=== PATIENT | male | born 1965 | race Caucasian/White ===

== ENCOUNTER 2016-12-08 21:43 | Inpatient (IN) | payer OTHER ==
[2016-12-08] MEDS ORDERED: ONDANSETRON 4 MG/2 ML VIAL IVPUSH ONE (22:03)
[2016-12-08] MEDS ORDERED: morphine CARPU-JECT 4 MG/1 ML DISP.SYRIN IVPUSH ONE (22:03)
[2016-12-08] MEDS ORDERED: SODIUM CHLORIDE 1,000 ML IV STA (22:03)
--- NOTE | 2016-12-08 22:03 | PDOC ---
History of Present Illness - History of Present Illness Initial Comments: 12/08/16 22:36 The patient is a 51 year old male with a history of kidney stones who presents for evaluation of right sided flank and abdominal pain. The patient reports acute onset of severe sharp right sided flank pain with radiation into his right sided abdomen and right groin. The patient reports that his pain feels similar to a kidney stone he had several years ago for which he was treated on an outpatient basis. He endorses some nausea and multiple episodes of non- bilious, non-bloody vomiting associated with the pain. He denies fevers, chills , SOB, chest pain, or changes with bowel movements. He states that he has not urinated since the onset of the pain. <Thomas Coats - Last Filed: 12/09/16 04:16> <Virginia Llamas - Last Filed: 12/09/16 04:57> - General Chief Complaint: Pain, Acute Stated Complaint: KIDNEY STONE Time Seen by Provider: 12/08/16 21:58 Past History - Suicide/Smoking/Psychosocial Hx Smoking History: Never smoked Have you smoked in the past 12 months: No Information on smoking cessation initiated: No Hx Alcohol Use: No Drug/Substance Use Hx: No <Thomas Coats - Last Filed: 12/09/16 04:16> <Virginia Llamas - Last Filed: 12/09/16 04:57> - Past Medical History Allergies/Adverse Reactions: Allergies Allergy/AdvReac Type Severity Reaction Status Date / Time No Known Allergies Allergy Verified 12/08/16 21:57 Home Medications: Ambulatory Orders Unobtainable [Unobtainable] 12/09/16 Review of Systems - Review of Systems Comments:: 12/08/16 22:41 Constitutional: No fevers, chills, fatigue, malaise HEENT: No Rhinorrhea, nasal congestion, visual changes Cardiovascular: No chest pain, syncope, palpitations, lightheadedness Respiratory: No Cough, SOB, Hemoptysis, Gastrointestinal: Nausea and vomiting. Abdominal pain. No Constipation, Diarrhea, Melena Genitourinary: Right flank pain. Decreased frequency. No Dysuria, Urgency, Hesitancy, Hematuria, Musculoskeletal: No Myalgia, arthralgia Skin: No rashes, itching, bruising, pallor Neurologic: No Headache, Dizziness, Numbness, Weakness, or Tingling <Thomas Coats - Last Filed: 12/09/16 04:16> *Physical Exam - Vital Signs Last Vital Signs Temp Pulse Resp BP Pulse Ox 97.3 F L 81 16 159/121 100 12/08/16 21:57 12/08/16 21:57 12/08/16 21:57 12/08/16 21:57 12/08/16 21:57 - Physical Exam Comments: 12/08/16 22:42 General Appearance: Nourished. In Moderate Distress HEENT: EOMI, JUDITH. No Pharyngeal Erythema, Tonsillar Exudate, Tonsillar Erythema Neck: No Cervical Lymphadenopathy Respiratory/Chest: Lungs Clear, Normal Breath Sounds. No Crackles, Rales, Rhonchi, Wheezing Cardiovascular: Regular Rhythm, Regular Rate. No Murmur, Gallops, Rubs Gastrointestinal/Abdominal: Normal Bowel Sounds, Soft. Right sided tenderness to palpation. No Guarding, Rebound, Musculoskeletal: Right sided CVA tenderness. No Left CVA Tenderness Extremity: Normal Capillary Refill Integumentary: Normal Color, Dry, Warm Neurologic: Fully Oriented, Alert, Normal Mood/Affect, Normal Response, <Thomas Coats - Last Filed: 12/09/16 04:16> - Vital Signs Last Vital Signs Temp Pulse Resp BP Pulse Ox 97.5 F L 68 18 132/64 98 12/09/16 04:11 12/09/16 04:11 12/09/16 04:26 12/09/16 04:11 12/09/16 04:26 <Virginia Llamas - Last Filed: 12/09/16 04:57> ED Treatment Course - LABORATORY CBC & Chemistry Diagram: 12/08/16 22:10 12/08/16 22:10 <Thomas Coats - Last Filed: 12/09/16 04:16> - LABORATORY CBC & Chemistry Diagram: 12/08/16 22:10 12/08/16 22:10 - ADDITIONAL ORDERS Additional order review: Laboratory Results 12/08/16 22:10 Sodium 140 Potassium 3.4 L Chloride 107 Carbon Dioxide 24 Anion Gap 9 BUN 20 H Creatinine 1.3 Creat Clearance w eGFR 57.75 Random Glucose 109 H Calcium 9.5 Total Bilirubin 0.5 AST 20 ALT 37 Alkaline Phosphatase 72 Total Protein 7.2 Albumin 3.8 Lipase 188 12/08/16 22:10 RBC 5.21 MCV 81.4 MCHC 32.8 RDW 14.5 MPV 8.6 Neutrophils % 64.9 Lymphocytes % 23.7 Monocytes % 6.1 Eosinophils % 4.6 H Basophils % 0.7 - Medications Given in the ED: ED Medications Discontinued Medications Generic Name Dose Route Start Last Admin Trade Name Shanon PRN Reason Stop Dose Admin Sodium Chloride 1,000 mls @ 1,000 mls/hr 12/08/16 22:03 12/08/16 22:27 Normal Saline - IV 12/08/16 23:02 1,000 mls/hr ASDIR STA Administration Ketorolac Tromethamine 30 mg 12/09/16 00:32 12/09/16 01:22 Toradol Injection - IVPUSH 12/09/16 00:33 30 mg ONCE ONE Administration Morphine Sulfate 4 mg 12/08/16 22:03 12/08/16 22:28 Morphine Injection - IVPUSH 12/08/16 22:04 Not Given ONCE ONE Morphine Sulfate 2 mg 12/08/16 22:15 12/08/16 22:26 Morphine Injection - IVPUSH 12/08/16 22:16 2 mg ONCE ONE Administration Morphine Sulfate 2 mg 12/08/16 22:51 12/08/16 23:01 Morphine Injection - IVPUSH 12/08/16 22:52 2 mg ONCE ONE Administration Ondansetron HCl 4 mg 12/08/16 22:03 12/08/16 22:26 Zofran Injection IVPUSH 12/08/16 22:04 4 mg ONCE ONE Administration Tamsulosin HCl 0.4 mg 12/09/16 00:30 12/09/16 01:22 Flomax - PO 12/09/16 00:31 0.4 mg ONCE ONE Administration <Virginia Llamas - Last Filed: 12/09/16 04:57> Medical Decision Making - Medical Decision Making 12/08/16 22:52 The patient is a 51 year old male with a history of kidney stones who presents for evaluation of right sided flank and abdominal pain. Differential includes but is not limited to: Appendicitis, nephrolethiasis, pyelonephritis, pancreatitis, infectious, metabolic derangement. The patient is in moderate distress on exam with an acutely tender abdomen and right flank. Given his symptoms we are concerned for a kidney stone especially given the acuity of his symptoms. The patient is post appendectomy. We will send a cbc, cmp, lipase, and UA to evaluate his symptoms further for pancreatitis or infectious etiologies. We will continue to monitor and reassess. 12/09/16 02:29 Cbc demonstrates an elevated wbc to 12.5. cmp demonstrates a bun of 20 and creatinine of 1.3. The patient has continued to not be able to urinate. CT demonstrates a 6mm stone at the u/v junction with hydroureter and multiple non- obstructing stones as read by the configuration developer radiologist pending official radiology read in the morning. We believe that the patient requires admission for further management of his symptoms. We discussed the results and the plan with the patient who voiced understanding and is agreeable with the plan. 12/09/16 02:31 We discussed the case with the hospitalist team who accepted the patient for admission. <Thomas Coats - Last Filed: 12/09/16 04:16> - Medical Decision Making 12/09/16 04:55 Pt was seen by myself and the resident. Pt comes with severe right sided and right flank tenderness; Pt has 6mm stone at the UPJ; it is obstructing and causing hydroureter. Pt was admitted to Dr. Mcbride's service. We treated with saline; analgesia and with flomax. No abx given. Pt requires UA and u culture first. <Virginia Llamas - Last Filed: 12/09/16 04:57> *DC/Admit/Observation/Transfer - Discharge Dispostion Admit: Yes <Thomas Coats - Last Filed: 12/09/16 04:16> <Virginia Llamas - Last Filed: 12/09/16 04:57> Diagnosis at time of Disposition: Kidney stone on right side - Discharge Dispostion Condition at time of disposition: Guarded - Referrals Addendum entered and electronically signed by Thomas Coats RES 12/09/16 04: 19: Progress Note - Progress Note Progress Note: Discussed the case with the hospitalist team. The patient is a patient of Dr. Mcbride's group. We discussed the patient with Dr. Mcbride's YEAST FERMENTATION ATTENDANT who agreed to accept the patient for admission.
[2016-12-08] MEDS ORDERED: morphine CARPU-JECT 2 MG/1 ML DISP.SYRIN ONE (22:14)
[2016-12-08] MEDS ORDERED: morphine CARPU-JECT 2 MG/1 ML DISP.SYRIN IVPUSH ONE ×2 (22:15→22:51)
[2016-12-08] MEDS ORDERED: ONDANSETRON 4 MG/2 ML VIAL ONE (22:15)
[2016-12-08 22:17] LABS: BASOPHIL 0.7 % (0-2.0); EOSINOPHIL 4.6 % (0-4.5); MCH 26.7 pg (25.7-33.7); MCHC 32.8 g/dl (32.0-35.9); MEAN CELL VOLUME 81.4 fl (80-96); MEAN PLT VOLUME 8.6 fl (7.5-11.1); NEUTROPHILS 64.9 % (42.8-82.8); PLATELET COUNT 201 K/MM3 (134-434); RDW 14.5 % (11.9-15.9); WHITE BLOOD COUNT 12.5 K/mm3 (4.0-10.0)
[2016-12-08 22:46] LABS: ALBUMIN 3.8 g/dl (3.4-5.0); ALK PHOS 72 U/L (45-117); ANION GAP 9 (8-16); BILIRUBIN,TOTAL 0.5 mg/dL (0.2-1.0); CALCIUM 9.5 mg/dL (8.5-10.1); CO2 24 mmol/L (21-32); CREATININE 1.3 mg/dL (0.7-1.3); GLUCOSE,RANDOM 109 mg/dL (74-106); SGOT/AST 20 U/L (15-37); SGPT/ALT 37 U/L (12-78); TOT PROT 7.2 g/dl (6.4-8.2)
[2016-12-08] MEDS ORDERED: morphine CARPU-JECT 10 MG/1 ML DISP.SYRIN ONE (22:56)
--- NOTE | 2016-12-08 23:10 | PDOC ---
Attending Attestation - Resident Resident Name: Thomas Coats - HPI HPI: 12/08/16 23:06 Pt comes with right flank pain and right sided abd pain. He has a hx of kidney stones; last was several years ago. Pt has HTN and asthma but no other medical probs. He has a desk job and doesn't strain. His appendix waws removed years ago. He has no fever and reports no dysuria, and states that he has been unable to pee; has not appreciated any hematuria. - Physicial Exam PE: 12/08/16 23:08 Agree with resident exam. Flank pain with palpation and with percussion; Pt has RLQ pain. Pt has LUQ pain and central abd tenderness. Pt is diffusely tender. Pt vomited 1X in the ER but that was after we tried oral hydration. Pt had received 2mg morphine. He was given another 2mg morphine for pain. - Medical Decision Making 12/08/16 23:[address] abd pelvis; he cannot tolerate oral contrast. We will not give IV contrast as we dont want to interfere with visualization of potential kidney stones. 12/09/16 04:05 Patient Name: ANTHONY WADSWORTH THIS IS A PRELIMINARY REPORT FROM [facility] [employer] TECHNIC[facility] DATE OF SERVICE: 2016-12-08 23:52:28 IMAGES: [id number] EXAM: CT ABDOMEN AND PELVIS WITHOUT CONTRAST 6 mm stone at right UVJ. Small nonobstructing stones bilateral kidneys. Small left renal cyst. No bowel obstruction, colitis, free fluid or free air. Appendix not seen. Unremarkable pancreas and gallbladder. THIS DOCUMENT HAS BEEN ELECTRONICALLY SIGNED Pt will be admitted for hydroureter and obstructing ston 6mm. Given flomax and pain meds. Pt will require renal consult in the AM.
[2016-12-09] MEDS ORDERED: TAMSULOSIN HCL 0.4 MG CAP.ER.24H (FP) PO ONE (00:30)
[2016-12-09] MEDS ORDERED: KETOROLAC TROMETHAMINE 30 MG/1 ML VIAL IVPUSH ONE (00:32)
[2016-12-09] MEDS ORDERED: TAMSULOSIN HCL 0.4 MG CAP.ER.24H (FP) ONE (01:17)
[2016-12-09] MEDS ORDERED: KETOROLAC TROMETHAMINE 30 MG/1 ML VIAL ONE (01:17)
[2016-12-09 04:11] VITALS: BMI 22.5
[2016-12-09 04:19] LABS: INR 1.12 (0.82-1.09); PROTHROMBIN TIME (PATIENT) 12.7 SEC (9.98-11.88)
[2016-12-09] MEDS ORDERED: morphine CARPU-JECT 2 MG/1 ML DISP.SYRIN IVPUSH PRN ×2 (07:46→07:54)
[2016-12-09] MEDS ORDERED: KETOROLAC TROMETHAMINE 30 MG/1 ML VIAL IVPUSH PRN (07:53)
[2016-12-09] MEDS: DEXTROSE 5%-WATER - 1,000 ML IV SCH (08:50)
--- NOTE | 2016-12-09 11:08 | CON.GU ---
Consult Consult Specialty:: Urology Referred by:: Reed Reason for Consultation:: Right flank pain - History of Present Illness Chief Complaint: Right flank pain History of Present Illness: 51 yo male w long hx renal calculi w right flank pain nausea now more comfortable Pt found to have right hydro from 6 mm right distal uretral stone . Voiding well - Alcohol/Substance Use Hx Alcohol Use: No (social) - Smoking History Smoking history: Never smoked Have you smoked in the past 12 months: No Home Medications - Allergies Allergies/Adverse Reactions: Allergies Allergy/AdvReac Type Severity Reaction Status Date / Time No Known Allergies Allergy Verified 12/08/16 21:57 - Home Medications Home Medications: Ambulatory Orders Unobtainable [Unobtainable] 12/09/16 Physical Exam- Vital Signs: Vital Signs Temperature 97.5 F L 12/09/16 04:11 Pulse Rate 68 12/09/16 04:11 Respiratory Rate 18 12/09/16 04:26 Blood Pressure 132/64 12/09/16 04:11 O2 Sat by Pulse Oximetry (%) 98 12/09/16 04:26 Imaging - Results Cat Scan: Image Reviewed Assessment/Plan Right renal colic from 6 mm obstructing distal ureteral stone Pt now comfortable Abx for elevated wbc VSS afebrile no evidence of SIRS if stone does not pass will likely require ureteroscopy
[2016-12-09] MEDS ORDERED: PATIENT'S OWN MEDICATION (NON-FORMULARY) (Albuterol Sulfate [Proair Respiclick] 90 MCG) IH PRN (17:53)
[2016-12-09] MEDS ORDERED: ALBUTEROL SO4 18 GM HFA INHALER IH PRN (18:03)
--- NOTE | 2016-12-09 18:04 | PN ---
Progress Note, Physician Chief Complaint: nephrolithiasis History of Present Illness: 51 yo male w long hx renal calculi came in to [facility] ER with right flank pain and nausea. He is comfortable now Patient was found to have right hydronephrosis with 6 mm right distal obstructing uretral stone . Voiding well now, pain well controlled on morphine given in ER has not used any pain medication since - Current Medication List Current Medications: Active Medications Ezetimibe (Zetia -) 10 mg PO DAILY [facility] Dextrose (D5w -) 1,000 mls @ 75 mls/hr IV ASDIR ALYSSA Last Admin: 12/09/16 08:50 Dose: 75 mls/hr Levofloxacin (Levaquin 500 Mg Premixed Ivpb -) 100 mls @ 100 mls/hr IVPB DAILY [facility] Ketorolac Tromethamine (Toradol Injection -) 30 mg IVPUSH Q6H PRN PRN Reason: PAIN Stop: 12/14/16 07:52 Losartan Potassium (Cozaar -) 50 mg PO DAILY [facility] Morphine Sulfate (Morphine Injection -) 4 mg IVPUSH Q6H PRN PRN Reason: PAIN Non-Formulary Medication (Albuterol Sulfate [Proair Respiclick]) 90 mcg IH QID PRN PRN Reason: ASTHMA Non-Formulary Medication (Anoro Ellipta 62.5-25 Mcg Inh) 1 puff PO DAILY [facility] Non-Formulary Medication (Atorvastatin Calcium) 80 mg PO DAILY [facility] Non-Formulary Medication (Azelastine/Fluticasone [Dymista Nasal [place]]) 23 gm NS BID [facility] Non-Formulary Medication (Metoprolol Tartrate) 25 mg PO DAILY [facility] Tamsulosin HCl (Flomax -) 0.4 mg PO DAILY@0830 [facility] - Objective Vital Signs: Vital Signs Temperature 98.0 F 12/09/16 14:00 Pulse Rate 66 12/09/16 14:00 Respiratory Rate 18 12/09/16 14:00 Blood Pressure 99/54 12/09/16 14:00 O2 Sat by Pulse Oximetry (%) 98 12/09/16 09:00 Constitutional: Yes: Well Nourished, No Distress, Calm Cardiovascular: Yes: Regular Rate and Rhythm Respiratory: Yes: Regular Musculoskeletal: Yes: WNL Extremities: Yes: WNL Edema: No Peripheral Pulses WNL: Yes Neurological: Yes: Alert, Oriented Psychiatric: Yes: Alert, Oriented Labs: INR, PTT INR 1.12 (0.82-1.09) 12/09/16 03:49 Problem List - Problems (1) Nephrolithiasis Assessment/Plan: -6 mm right distal obstructing uretral stone -seen by urology -trial of patient passing the stone Code(s): N20.0 - CALCULUS OF KIDNEY (2) Hydronephrosis due to obstruction of ureter Assessment/Plan: -no urinary retention in the bladder -voiding well -6 mm right distal obstructing uretral stone Code(s): N13.2 - HYDRONEPHROSIS WITH RENAL AND URETERAL CALCULOUS OBSTRUCTION Assessment/Plan see problem list
[2016-12-09] MEDS: HEPARIN NA (PORCINE) 5,000 UNITS/ML 1ML VIAL SQ SCH (21:14)
[2016-12-09] MEDS: ATORVASTATIN CA 80 MG TABLET (FP) PO SCH (21:14)
--- NOTE | 2016-12-09 21:22 | HP ---
Admitting History and Physical - Primary Care Physician PCP: James Avila - Admission Chief Complaint: nephrolithiasis History of Present Illness: 51 yo male w long hx renal calculi came in to [facility] ER with right flank pain and nausea. He is comfortable now Patient was found to have right hydronephrosis with 6 mm right distal obstructing uretral stone . Voiding well now, pain well controlled on morphine given in ER has not used any pain medication since. seen by urology, on IVF, may pass the stone spontaneously, if not would need lithotripsy History Source: Patient Limitations to Obtaining History: No Limitations - Advance Directives Advance Directives: Yes: Living Will, Health Care Proxy - Smoking History Smoking history: Never smoked Have you smoked in the past 12 months: No - Alcohol/Substance Use Hx Alcohol Use: No (social) Home Medications - Allergies Allergies/Adverse Reactions: Allergies Allergy/AdvReac Type Severity Reaction Status Date / Time No Known Allergies Allergy Verified 12/08/16 21:57 - Home Medications Home Medications: Ambulatory Orders Albuterol Sulfate [Proair Respiclick] 90 mcg IH QID PRN 12/09/16 Anoro Ellipta 62.5-25 Mcg INH 1 puff PO DAILY 12/09/16 Aspirin [ASA -] 81 mg PO DAILY 12/09/16 Atorvastatin Calcium 80 mg PO DAILY 12/09/16 Azelastine/Fluticasone [Dymista Nasal [place]] 23 gm NS BID 12/09/16 Ezetimibe [Zetia] 10 mg PO DAILY 12/09/16 Losartan Potassium 50 mg PO DAILY 12/09/16 Losartan Potassium 100 mg PO DAILY 12/09/16 Metoprolol Tartrate 25 mg PO DAILY 12/09/16 Review of Systems Findings/Remarks: NAD, sitting in chair, family at bedside - Review of Systems Constitutional: reports: No Symptoms Eyes: reports: No Symptoms HENT: reports: No Symptoms Neck: reports: No Symptoms Cardiovascular: reports: No Symptoms Respiratory: reports: No Symptoms Gastrointestinal: reports: No Symptoms Genitourinary: reports: Flank Pain (right) Breasts: reports: No Symptoms Reported Musculoskeletal: reports: No Symptoms Integumentary: reports: No Symptoms Neurological: reports: No Symptoms Endocrine: reports: No Symptoms Hematology/Lymphatic: reports: No Symptoms Psychiatric: reports: No Symptoms Pain Intensity: 8 (no pain at this time) Physical Examination Vital Signs: Vital Signs Temperature 98 F 12/09/16 18:17 Pulse Rate 78 12/09/16 18:17 Respiratory Rate 18 12/09/16 18:17 Blood Pressure 105/60 12/09/16 18:17 O2 Sat by Pulse Oximetry (%) 98 12/09/16 09:00 Constitutional: Yes: Well Nourished, No Distress, Calm Cardiovascular: Yes: Regular Rate and Rhythm Respiratory: Yes: Regular Gastrointestinal: Yes: Normal Bowel Sounds Renal/: Yes: CVA Tenderness - Right Musculoskeletal: Yes: WNL Extremities: Yes: WNL Edema: No Peripheral Pulses WNL: Yes Neurological: Yes: Alert, Oriented Psychiatric: Yes: Alert, Oriented Imaging - Results Cat Scan: Report Reviewed Problem List - Problems (1) Nephrolithiasis Assessment/Plan: -6 mm right distal obstructing uretral stone -seen by urology -trial of patient passing the stone Code(s): N20.0 - CALCULUS OF KIDNEY (2) Hydronephrosis due to obstruction of ureter Assessment/Plan: -no urinary retention in the bladder -voiding well -6 mm right distal obstructing uretral stone Code(s): N13.2 - HYDRONEPHROSIS WITH RENAL AND URETERAL CALCULOUS OBSTRUCTION Assessment/Plan see problem list
[2016-12-10 07:33] LABS: BASOPHIL 0.5 % (0-2.0); EOSINOPHIL 7.5 % (0-4.5); MCH 26.8 pg (25.7-33.7); MCHC 32.9 g/dl (32.0-35.9); MEAN CELL VOLUME 81.3 fl (80-96); MEAN PLT VOLUME 8.5 fl (7.5-11.1); NEUTROPHILS 50.4 % (42.8-82.8); PLATELET COUNT 160 K/MM3 (134-434); RDW 14.4 % (11.9-15.9); WHITE BLOOD COUNT 7.4 K/mm3 (4.0-10.0)
[2016-12-10 07:52] LABS: ANION GAP 9 (8-16); CALCIUM 8.2 mg/dL (8.5-10.1); CO2 25 mmol/L (21-32); GLUCOSE,RANDOM 97 mg/dL (74-106)
[2016-12-10 07:56] LABS: ALK PHOS 64 U/L (45-117); BILIRUBIN,TOTAL 0.7 mg/dL (0.2-1.0); SGOT/AST 14 U/L (15-37); SGPT/ALT 28 U/L (12-78); TOT PROT 5.9 g/dl (6.4-8.2)
[2016-12-10] MEDS: DEXTROSE 5%-WATER - 1,000 ML IV SCH (08:08)
[2016-12-10] MEDS ORDERED: ANORO ELLIPTA PO SCH (10:00)
[2016-12-10] MEDS ORDERED: ATORVASTATIN CALCIUM 80 MG PO SCH (10:00)
[2016-12-10] MEDS ORDERED: METOPROLOL TARTRATE 25 MG PO SCH (10:00)
[2016-12-10] MEDS: HEPARIN NA (PORCINE) 5,000 UNITS/ML 1ML VIAL SQ SCH ×2 (10:06→21:32)
[2016-12-10] MEDS: LEVOFLOXACIN 500 MG IVPB 100 ML IVPB SCH (10:06)
[2016-12-10] MEDS: METOPROLOL TARTRATE 25 MG TABLET (FP) PO SCH (10:07)
[2016-12-10] MEDS: LOSARTAN POTASSIUM 50 MG TABLET (FP) PO SCH (10:07)
[2016-12-10] MEDS: TAMSULOSIN HCL 0.4 MG CAP.ER.24H (FP) PO SCH (10:07)
[2016-12-10] MEDS: EZETIMIBE 10 MG TABLET (FP) PO SCH (10:10)
--- NOTE | 2016-12-10 14:52 | EKG ---
Test Reason : Blood Pressure : / mmHG Vent. Rate : 061 BPM Atrial Rate : 061 BPM P-R Int : 178 ms QRS Dur : 088 ms QT Int : 420 ms P-R-T Axes : 039 022 051 degrees QTc Int : 422 ms NORMAL SINUS RHYTHM NORMAL ECG NO PREVIOUS ECGS AVAILABLE Confirmed by VALENCIA MORTON MD ([id number]) on 12/10/2016 2:52:22 PM Referred By: AMY JIM DR Confirmed By:VALENCIA MORTON MD
--- NOTE | 2016-12-10 16:35 | PN ---
Progress Note, Physician Chief Complaint: notes and chart reviewed 7mm right uvj stone obstruction no fevers - Current Medication List Current Medications: Active Medications Albuterol Sulfate (Ventolin Hfa Inhaler -) 2 puff IH Q6H PRN PRN Reason: ASTHMA Atorvastatin Calcium (Lipitor -) 80 mg PO HS [facility] Last Admin: 12/09/16 21:14 Dose: 80 mg Ezetimibe (Zetia -) 10 mg PO DAILY [facility] Last Admin: 12/10/16 10:10 Dose: 10 mg Heparin Sodium (Porcine) (Heparin -) 5,000 unit SQ BID [facility] Last Admin: 12/10/16 10:06 Dose: 5,000 unit Dextrose (D5w -) 1,000 mls @ 75 mls/hr IV ASDIR [facility] Last Admin: 12/10/16 08:08 Dose: 75 mls/hr Levofloxacin (Levaquin 500 Mg Premixed Ivpb -) 100 mls @ 100 mls/hr IVPB DAILY [facility] Last Admin: 12/10/16 10:06 Dose: 100 mls/hr Ketorolac Tromethamine (Toradol Injection -) 30 mg IVPUSH Q6H PRN PRN Reason: PAIN Stop: 12/14/16 07:52 Lactobacillus Acidophilus (Bacid -) 1 tab PO DAILY [facility] Losartan Potassium (Cozaar -) 50 mg PO DAILY [facility] Last Admin: 12/10/16 10:07 Dose: 50 mg Metoprolol Tartrate (Lopressor -) 25 mg PO DAILY [facility] Last Admin: 12/10/16 10:07 Dose: 25 mg Morphine Sulfate (Morphine Injection -) 4 mg IVPUSH Q6H PRN PRN Reason: PAIN Non-Formulary Medication (Anoro Ellipta 62.5-25 Mcg Inh) 1 puff PO DAILY [facility] Non-Formulary Medication (Azelastine/Fluticasone [Dymista Nasal [place]]) 23 gm NS BID [facility] Tamsulosin HCl (Flomax -) 0.4 mg PO DAILY@0830 [facility] Last Admin: 12/10/16 10:07 Dose: 0.4 mg - Objective Vital Signs: Vital Signs Temperature 98.7 F 12/10/16 15:30 Pulse Rate 68 12/10/16 15:30 Respiratory Rate 18 12/10/16 15:30 Blood Pressure 115/74 12/10/16 15:30 O2 Sat by Pulse Oximetry (%) 98 12/10/16 09:00 Constitutional: Yes: Mild Distress Eyes: Yes: WNL HENT: Yes: WNL, Tonsillar Exudate Cardiovascular: Yes: WNL Respiratory: Yes: WNL Gastrointestinal: Yes: Tenderness Genitourinary: Yes: CVA Tenderness - Right Musculoskeletal: Yes: Back Pain Extremities: Yes: WNL Edema: No Peripheral Pulses WNL: Yes Integumentary: Yes: WNL Wound/Incision: Yes: Clean/Dry Neurological: Yes: WNL ...Motor Strength: WNL Psychiatric: Yes: WNL Labs: CBC, BMP 12/10/16 06:45 12/10/16 06:45 INR, PTT INR 1.12 (0.82-1.09) 12/09/16 03:49 Problem List - Problems (1) Hydronephrosis due to obstruction of ureter Code(s): N13.2 - HYDRONEPHROSIS WITH RENAL AND URETERAL CALCULOUS OBSTRUCTION (2) Kidney stone on right side Code(s): N20.0 - CALCULUS OF KIDNEY (3) Nephrolithiasis Code(s): N20.0 - CALCULUS OF KIDNEY Assessment/Plan CONSULT APPRECIATED MEDICALLY CLEARED FOR URETROSCOPE IV ABX BACID IVF PAIN CONTROL
--- NOTE | 2016-12-10 16:58 | PN ---
Progress Note (short form) - Note Progress Note: afebrile pain mild has yet to pass stone will plan for ESWL in am
[2016-12-10] MEDS: LACTOBACILLUS ACIDOPHILUS 1 EACH TAB (FP) PO SCH (18:20)
[2016-12-10] MEDS: ATORVASTATIN CA 80 MG TABLET (FP) PO SCH (21:32)
[2016-12-11] MEDS: METOPROLOL TARTRATE 25 MG TABLET (FP) PO SCH (09:10)
[2016-12-11] MEDS: LEVOFLOXACIN 500 MG IVPB 100 ML IVPB SCH (09:10)
[2016-12-11] MEDS: LOSARTAN POTASSIUM 50 MG TABLET (FP) PO SCH (09:10)
[2016-12-11] MEDS: LACTOBACILLUS ACIDOPHILUS 1 EACH TAB (FP) PO SCH ×2 (09:14→12:05)
[2016-12-11] MEDS: HEPARIN NA (PORCINE) 5,000 UNITS/ML 1ML VIAL SQ SCH (09:14)
[2016-12-11] MEDS: TAMSULOSIN HCL 0.4 MG CAP.ER.24H (FP) PO SCH ×2 (09:14→12:05)
--- NOTE | 2016-12-11 10:00 | OP ---
Operative Note - Note: Operative Date: 12/11/16 Pre-Operative Diagnosis: Right renal colic Operation: Right Lithotripsy Findings: Right ureteral calculus Post-Operative Diagnosis: Same as Pre-op Surgeon: Ash Waterman MD. Anesthesia: MAC Operative Report Dictated: Yes
[2016-12-11] MEDS ORDERED: LACTATED RINGERS SOLUTION 1,000 ML IV SCH (10:15)
[2016-12-11] MEDS ORDERED: MIDAZOLAM HCL 2 MG/2 ML SINGLE DOSE VIAL ONE (10:16)
[2016-12-11] MEDS ORDERED: LIDOCAINE HCL/PF 2% SDV 5ML VIAL ONE (10:33)
[2016-12-11] MEDS: DEXTROSE 5%-WATER - 1,000 ML IV SCH (12:04)
[2016-12-11 12:12] VITALS: BP 98/54; PULSE 54; TEMP 98.2
[2016-12-11] MEDS: EZETIMIBE 10 MG TABLET (FP) PO SCH (15:05)
--- NOTE | 2016-12-11 15:10 | DS ---
Physical Examination Vital Signs: Vital Signs Temperature 98.2 F 12/11/16 11:35 Pulse Rate 54 L 12/11/16 11:35 Respiratory Rate 18 12/11/16 11:35 Blood Pressure 98/54 12/11/16 11:35 O2 Sat by Pulse Oximetry (%) 97 12/11/16 11:35 Findings/Remarks: ADMITTED ACUTE RENAL COLIC, S/P ESWL, FEELING BETTER Constitutional: Yes: Well Nourished, No Distress Eyes: Yes: WNL HENT: Yes: WNL Neck: Yes: WNL Cardiovascular: Yes: WNL Respiratory: Yes: WNL Gastrointestinal: Yes: WNL Renal/: Yes: WNL Musculoskeletal: Yes: WNL Extremities: Yes: WNL Edema: No Peripheral Pulses WNL: Yes Integumentary: Yes: WNL Wound/Incision: Yes: Clean/Dry Neurological: Yes: WNL ...Motor Strength: WNL Psychiatric: Yes: WNL Labs: CBC, BMP 12/10/16 06:45 12/10/16 06:45 Discharge Summary Reason For Visit: CALCULUS OF RIGHT KIDNEY Current Active Problems Hydronephrosis due to obstruction of ureter (Acute) Kidney stone on right side (Acute) Nephrolithiasis (Acute) Procedures: Principal: CT ABD Other Procedures: ESWL Hospital Course: S/P ESWL, ABLE TO URINATE ON HIS OWN, F/U OUTPATIENT WITH AND PMD IN 2-3 DAYS Condition: Good - Instructions Diet, Activity, Other Instructions: Drink plenty of liquids Call for apt 2 weeks Referrals: Michael Sam [Primary Care Provider] - Disposition: HOME - Home Medications Comprehensive Discharge Medication List: Ambulatory Orders Albuterol Sulfate [Proair Respiclick] 90 mcg IH QID PRN 12/09/16 Anoro Ellipta 62.5-25 Mcg INH 1 puff PO DAILY 12/09/16 Aspirin [ASA -] 81 mg PO DAILY 12/09/16 Atorvastatin Calcium 80 mg PO DAILY 12/09/16 Azelastine/Fluticasone [Dymista Nasal [place]] 23 gm NS BID 12/09/16 Ezetimibe [Zetia] 10 mg PO DAILY 12/09/16 Losartan Potassium 50 mg PO DAILY 12/09/16 Losartan Potassium 100 mg PO DAILY 12/09/16 Metoprolol Tartrate 25 mg PO DAILY 12/09/16
--- NOTE | 2016-12-11 15:38 | OP ---
DATE OF OPERATION: 12/11/2016 PREOPERATIVE DIAGNOSIS: Right ureteral calculus. POSTOPERATIVE DIAGNOSIS: Right ureteral calculus. PROCEDURE: Right shock wave lithotripsy. HISTORY: This is a pleasant, 51-year-old gentleman with prior history of renal calculi and prior lithotripsies. He now presents with right renal colic, was admitted for pain management and hydration. The patient preoperatively was found to have a 6-mm distal ureteral stone with resulting hydronephrosis. He had a white count of 12.9, which had defervesced with antibiotics. Treatment options were discussed with the patient who elected to undergo the above-stated procedure. Risks and benefits of treatment alternatives were discussed in detail. All questions were answered. DESCRIPTION OF OPERATIVE PROCEDURE: Patient brought to the operating room, placed in supine position. Once sedation was administered, approximately 3000 shocks were delivered to the stone which had been localized using 3D fluoroscopy. The patient tolerated the procedure well and was brought to recovery room in stable and satisfactory condition. [place] [id number]
[2016-12-12] MEDS ORDERED: LEVOFLOXACIN 500 MG TABLET (FP) PO SCH (10:00)
== END 2016-12-11 15:35 | disposition home or self-care (01) | DRG 465 ==
LOC: JER 21:43 → JERBED 12-09 02:34 → UNDOADMIN 12-09 02:50 → JERBED 12-09 02:50 → J4S 12-09 04:35
PROVIDERS: ADMIT Internal Medicine; ATTEND Family Medicine
PROC: 0TF6XZZ Fragmentation in Right Ureter, External Approach (ICD-10-PCS; principal; 2016-12-11 09:30)
DX: N13.2 Hydronephrosis with renal and ureteral calculous obstruction (principal); N28.1 Cyst of kidney, acquired; I10 Essential (primary) hypertension; I25.2 Old myocardial infarction; J45.909 Unspecified asthma, uncomplicated
CPT/HCPCS: 36415; 74176; 80053; 83690; 85025; 85610; 85730; 86850; 86900; 86901; 87086; 93005; 93010; 94760; 99283-25; J1644

== ENCOUNTER 2019-05-17 20:30 | Emergency (ER) | payer OTHER ==
[2019-05-17 20:39] VITALS: BP 126/86; PULSE 108; TEMP 99.1
--- NOTE | 2019-05-17 20:43 | PDOC ---
Rapid Medical Evaluation Medical Evaluation: Allergies Allergy/AdvReac Type Severity Reaction Status Date / Time No Known Allergies Allergy Verified 12/08/16 21:57 05/17/19 20:33 HPI: COVID-19 CDC guideline data points: The patient is a 53 year old M presents with confirmed COVID-19 with associated symptoms of fever, dry cough, SOB, anorexia, or diarrhea, complicated by this/these comorbidities: none. c/o cough and sob x 2weeks. He tested (+) for COVID 4 days ago. Called EMS for sob. still coughing ROS: NEGATIVE: difficulty breathing, shortness of breath, chest pain, lightheadedness, dizziness, nausea, vomiting and diarrhea. Other 12 point ROS reviewed and negative. Exam: General: NAD, Well-Appearing, Awake, Alert Oriented x3. Vital signs stable, coughing. ENT: No rhinorrhea or nasal congestion. Neck: FROM, no midline tenderness. Lungs: Clear to auscultation bilaterally without wheezes, rhonchi or rales. Normal excursion. Patient is able to speak in full sentences. Heart: HR: Regular rhythm, S1-S2 present, no murmurs rubs or gallops. Abdomen: Non-distended. MSK/Extremities: No decrease ROM, No obvious deformities. No obvious cyanosis noted. Neuro: Normal Gait, Cranial Nerves II through XII Grossly Intact. Skin: No obvious rashes, bruising. Color Normal Appearing. Assessment/Plan: [Cough/fever] Patient has a history of this/these comorbidities: (+) COVID Patient does not meet testing criteria at this time. Treatment: cxr ambuation pulse ox 05/17/19 20:37 patient remains with stable pulse ox with ambulation dips to 94 but quicklly recover to 97-100%
--- NOTE | 2019-05-17 21:04 | PDOC ---
Rapid Medical Evaluation Chief Complaint: Shortness of Breath Time Seen by Provider: 05/17/19 20:53 Medical Evaluation: Allergies Allergy/AdvReac Type Severity Reaction Status Date / Time No Known Allergies Allergy Verified 12/08/16 21:57 Vital Signs Temp Pulse Resp BP Pulse Ox 99.1 F 108 H 22 H 126/86 99 05/17/19 20:37 05/17/19 20:37 05/17/19 20:37 05/17/19 20:37 05/17/19 20:37 05/17/19 21:02 + covid 4 days ago Hx asthma and using inhaler with minimal improvement. Pt with cough and subject fever pts cxr suggestive of rll pneumonia. repeat vs after ambulating on ED ramp...98 % on ra with mask, speaking full sentences, hr 106 Zpak sent to pharmacy 05/17/19 21:04 05/17/19 21:09 Discharge Disposition - Diagnosis Pneumonia - Discharge Dispostion Disposition: HOME Condition at time of disposition: Good - Referrals - Patient Instructions Printed Discharge Instructions: DI for Pneumonia -- Adult, [facility]-Coronavirus Instructions, [facility] COVID-19 Isolation Protocol Additional Instructions: Please take azithromycin as prescribed . Use inhaler as prescribed Take Tylenol 650 mg every 6 hours as needed for fever or pain. You may take Robitussin or other [id number] cough syrup. Follow the dosing instructions on the bottle. Warm tea, honey, and salt water gargles may help your symptoms. Please take precautions and self quarantine for 2 weeks and follow-up with your primary care doctor and the Department of Health. Return to the nearest emergency department for shortness of breath, difficulty breathing, chest pain, or if you have any changes in your symptoms. - Post Discharge Activity
== END 2019-05-17 21:18 | disposition home or self-care (01) ==
LOC: JER 20:30
DX: J12.89 Other viral pneumonia (principal); B97.29 Other coronavirus as the cause of diseases classified elsewhere
CPT/HCPCS: 71045-TC-FY; 99283-25

== ENCOUNTER 2024-03-05 09:03 | Inpatient (IN) | payer BC, OTHER ==
[2024-03-05] MEDS ORDERED: ASPIRIN 81 MG CHEWABLE TABLETS ONE (10:39)
[2024-03-05] MEDS: ASPIRIN 81 MG CHEWABLE TABLETS PO ONE (10:52)
[2024-03-05 10:55] LABS: BASO % 0.4 % (0-2.0); HEMOGLOBIN 13.9 GM/dL (11.7-16.9); LYMPH % 35.9 % (8-40); MCHC 33.1 g/dl (32.0-35.9); MEAN CELL VOLUME 81.4 fl (80-96); MONO % 8.5 % (3.8-10.2); NEUT % 53.2 % (42.8-82.8); PLATELET COUNT 218 10^3/uL (134-434); RBC 5.16 M/mm3 (4.00-5.60); RDW 15.5 % (11.9-15.9); WHITE BLOOD COUNT 6.8 K/mm3 (4.0-10.0)
[2024-03-05 11:02] LABS: INR 0.99 (0.83-1.09); PROTHROMBIN TIME (PATIENT) 11.2 SEC (9.7-13.0)
[2024-03-05 11:05] LABS: ACTIVATED PTT 31.7 SECONDS (25.2-36.5)
[2024-03-05 11:13] LABS: POTASSIUM 3.9 mmol/L (3.5-5.1)
[2024-03-05 11:15] LABS: CALCIUM 9.2 mg/dL (8.5-10.1)
[2024-03-05 11:16] LABS: ALBUMIN 3.4 g/dl (3.4-5.0); BLOOD UREA NITROGEN 11.1 mg/dL (7-18)
[2024-03-05 11:19] LABS: CREATININE 0.9 mg/dL (0.55-1.3)
[2024-03-05 11:21] LABS: BILIRUBIN,TOTAL 0.5 mg/dL (0.2-1); TOT PROT 6.6 g/dl (6.4-8.2)
[2024-03-05 12:31] LABS: HIV INTERPRETATION NEGATIVE (NEGATIVE)
[2024-03-05] MEDS ORDERED: LIDOCAINE 4% PATCH TP ONE (12:43)
[2024-03-05] MEDS ORDERED: LIDOCAINE 5% TOPICAL PATCH ONE (12:44)
[2024-03-05] MEDS: LIDOCAINE 5% TOPICAL PATCH TP ONE (12:47)
[2024-03-05] MEDS: METOPROLOL TARTRATE 25 MG TABLET (FP) PO SCH (20:36)
[2024-03-05] MEDS: LIDOCAINE PATCH REMOVAL MC SCH (21:45)
[2024-03-05] MEDS: ATORVASTATIN CA 80 MG TABLET (FP) PO SCH (21:45)
[2024-03-05] MEDS: HEPARIN NA (PORCINE) 5,000 UNITS/ML 1ML VIAL SQ SCH (21:45)
[2024-03-06 00:07] VITALS: BMI 24.7
[2024-03-06 08:25] LABS: BASO % 0.3 % (0-2.0); HEMATOCRIT 43.5 % (35.4-49); HEMOGLOBIN 14.2 GM/dL (11.7-16.9); LYMPH % 33.8 % (8-40); MCH 26.9 pg (25.7-33.7); MCHC 32.8 g/dl (32.0-35.9); MEAN CELL VOLUME 82.1 fl (80-96); MEAN PLT VOLUME 8.4 fl (7.5-11.1); MONO % 11.6 % (3.8-10.2); NEUT % 52.3 % (42.8-82.8); PLATELET COUNT 214 10^3/uL (134-434); RBC 5.29 M/mm3 (4.00-5.60); RDW 15.5 % (11.9-15.9)
[2024-03-06 08:41] LABS: POTASSIUM 4.1 mmol/L (3.5-5.1)
[2024-03-06 08:44] LABS: ALBUMIN 3.5 g/dl (3.4-5.0); BLOOD UREA NITROGEN 12.7 mg/dL (7-18)
[2024-03-06 08:49] LABS: BILIRUBIN,TOTAL 1.2 mg/dL (0.2-1); TOT PROT 6.7 g/dl (6.4-8.2)
[2024-03-06] MEDS: EZETIMIBE 10 MG TABLET (FP) PO SCH (10:04)
[2024-03-06] MEDS: TAMSULOSIN HCL 0.4 MG CAP PO SCH (10:04)
[2024-03-06] MEDS: ASPIRIN 81 MG CHEWABLE TABLETS PO SCH (10:04)
[2024-03-06] MEDS: LOSARTAN POTASSIUM 50 MG TABLET PO SCH (10:04)
[2024-03-06] MEDS: UMECLIDINIUM/VILANTEROL (ANORO) 62.5/25 MCG INHALER IH SCH (14:57)
[2024-03-06] MEDS ORDERED: LOSARTAN POTASSIUM 50 MG TABLET PO SCH ×2 (22:00)
[2024-03-07 06:31] VITALS: RESP 18
[2024-03-07 10:47] VITALS: BP 115/78; PULSE 99; TEMP 98.2
== END 2024-03-07 11:21 | disposition left against medical advice (07) | DRG 313 ==
LOC: JER 09:03 → JERBED 10:17 → OBSVTOIN 17:18 → JERBED 19:22 → J4S 20:57
PROVIDERS: ADMIT Family Medicine; ATTEND Family Medicine
DX: R07.9 Chest pain, unspecified (principal); I10 Essential (primary) hypertension; E78.5 Hyperlipidemia, unspecified; I25.10 Atherosclerotic heart disease of native coronary artery without angina pectoris
CPT/HCPCS: 0241U-QW; 36415; 71045-TC-FY; 80053; 80061; 83036; 83735; 84443; 84484; 85025; 85610; 85730; 86803; 86850; 86900; 86901; 87389; 93005; 93010; 93306-TC; 99291; G0378; J1644